=== PATIENT | male | born 1955 | race Caucasian/White ===

== ENCOUNTER → 2017-12-01 | Outpatient (CLI) | payer BC ==
[~2017-12-01] MED LIST: ANDG TOP; AZEL0.056; FLM4 PO; LACT1CAP6 PO; METRO TOP; MULT-506 PO; OPTIRAY 320 IV PRN; [UNRECOGNIZED DRUG - CODE] INH
--- NOTE | 2017-12-01 12:59 | DIAGNOSTIC IMAGING REPORT ---
ABD/PELVIS COMBO WITH ORAL CLINICAL HISTORY: N40.1 Benign prostatic hyperplasia with urinary obstructionPer J TECHNIQUE: Transaxial acquisition with multi axial reformatted images COMPARISON STUDY: None FINDINGS: 4 mm nodular density right lung base. Lung bases otherwise are clear. The unenhanced component of the study shows no abnormal calcifications within the upper urinary tracts. Bladder is midline. Prostate is moderately enlarged. The enhanced component of the study demonstrates liver to be uniform throughout. Gallbladder is negative for distention. Pancreas is uniform. Kidneys enhance appropriately. There is no evidence for renal hydronephrosis. Bowel pattern is nonobstructive. There is no significant abdominal pelvic or inguinal adenopathy. Several scattered sigmoid diverticuli. Bladder opacifies appropriately. No filling defect. Moderate prosthetic enlargement. Unremarkable skeletal structures. IMPRESSION: 1. Mild prostatic enlargement 2. The abdomen and pelvis is otherwise negative. 3. 4 mm nodule right lung base with follow-up per Fleischner criteria. Please refer to below summary of Fleischner criteria recommendations for follow-up of incidental CT nodules (Kaya Brandon, Guidelines for management of small pulmonary nodules detected on CT scans: A statement from the Fleischner Society, Radiology 237: [id number].) SOLID NODULES Solitary nodule size: <6 mm * low risk patients: no follow-up needed * high risk patients: optional CT at 12 months Solitary nodule size: 6-8 mm * low risk patients: follow-up at 6-12 months, then consider further follow-up at 18-24 months * high risk patients: initial follow-up CT at 6-12 months and then at 18-24 months if no change Solitary nodule size: >8 mm * either low or high risk patients - consider follow-up CT at 3 months, and/or CT-PET, and/or biopsy Multiple nodules size: <6 mm * low risk patients: no routine follow-up * high risk patients: optional CT at 12 months Multiple nodules size: 6-8 mm * low risk patients: follow-up at 3-6 months, then consider further follow-up at 18-24 months * high risk patients: follow-up at 3-6 months, then at 18-24 months if no change Multiple nodules size: >8 mm * low risk patients: follow-up at 3-6 months, then consider further follow-up at 18-24 months * high risk patients: follow-up at 3-6 months, then at 18-24 months if no change Note: newly detected indeterminate nodule in persons 35 years of age or older. * low risk patients: minimal or absent history of smoking and/or other known risk factors * high risk patients: history of smoking or of other known risk factors (e.g. first degree relative with lung cancer, or exposure to asbestos, radon, uranium) * if a nodule up to 8 mm is partly solid or is ground glass further follow-up is required after 24 months to exclude possible slow growing adenocarcinoma ([facility]) SUBSOLID NODULES Solitary pure ground-glass nodule * nodule size <6 mm - no CT follow-up required * nodule size >=6 mm - follow-up CT at 6-12 months, then every 2 years until 5 years Solitary part-solid nodule * nodule size <6 mm - no CT follow-up required * nodule size >=6 mm - follow-up CT at 3-6 months. If unchanged, and solid component remains <6 mm, then annual follow-up for 5 years Multiple subsolid nodules * nodule size <6 mm - follow-up CT at 3-6 months, consider further follow-up at 2 and 4 years if stable * nodule size >=6 mm - follow-up CT at 3-6 months, subsequent management based on the most suspicious nodule(s) The above report was generated using voice recognition software. It may contain grammatical, syntax or spelling errors. Electronically signed by: Manfred Steele M.D. 12/01/2017 12:58 PM Dictated Date/Time: 12/01/2017 12:50 PM
== END | disposition home or self-care (01) ==
LOC: C.CTS 11:36
PROVIDERS: ATTEND Urology
DX: N40.1 Benign prostatic hyperplasia with lower urinary tract symptoms (principal); R91.1 Solitary pulmonary nodule